=== PATIENT | female | born 1995 | race Caucasian/White ===

== ENCOUNTER 2020-02-19 09:59 | Emergency (ER) | payer OTHER ==
[2020-02-19] MEDS ORDERED: Ondansetron ODT 4 MG TAB ONE (10:29)
[2020-02-19 10:50] LABS: Bilirubin Negative (Negative); Blood, Urine Negative (Negative); Clarity Clear (Clear); Glucose, Urine (Dipstick) Normal (Negative); Ketone, Urine Negative (Negative); Leukocyte Negative Leu/uL (Negative); Nitrite Negative (Negative); Protein, Urine (Dipstick) Negative (Neg-Trace); Specific Gravity, Urine 1.019 (1.002-1.036); Urobilinogen Normal mg/dL (Less than 2)
[2020-02-19 10:57] LABS: Pregnancy Test - Urine (BHCG) Indeterminate (Negative); Pregu Control Background? CLEAR/WHITE (CLR/WHITE); Pregu Control Bar Appear? YES (CONTROL BAR); Specific Gravity 1.019 (1.002-1.036)
[2020-02-19 18:21] LABS: SARS-CoV-2 MS2 Positive; SARS-CoV-2 N Gene Negative; SARS-CoV-2 S Gene Negative; SARS-CoV-2 by NAA Not Detected (NotDetected); SARS-CoV-2 orf1ab Negative
== END 2020-02-19 12:00 | disposition home or self-care (01) ==
LOC: ERS 09:59
DX: R05 Cough (principal); R51.9 Headache, unspecified; R11.2 Nausea with vomiting, unspecified; R09.81 Nasal congestion; Z20.828 Contact with and (suspected) exposure to other viral communicable diseases
CPT/HCPCS: 81003; 81025; 87086; 87635; 99284; Q0162; U0003

== ENCOUNTER 2020-03-12 09:29 | Emergency (ER) | payer OTHER ==
[2020-03-12 16:32] LABS: SARS-CoV-2 MS2 Positive; SARS-CoV-2 N Gene Negative; SARS-CoV-2 S Gene Negative; SARS-CoV-2 by NAA Not Detected (NotDetected); SARS-CoV-2 orf1ab Negative
== END 2020-03-12 12:39 | disposition home or self-care (01) ==
LOC: ERS 09:29
DX: J06.9 Acute upper respiratory infection, unspecified (principal); Z20.828 Contact with and (suspected) exposure to other viral communicable diseases
CPT/HCPCS: 87635; 87804; 99283; U0003

== ENCOUNTER 2020-06-15 13:31 | Outpatient (CLI) | payer OTHER ==
--- NOTE | 2020-06-15 14:21 | ULT ---
EXAM: OB ultrasound COMPARISON: None HISTORY: female. Evaluate size, dates, and anatomy. TECHNIQUE: Multiplanar grayscale and color Doppler transabdominal sonographic images are obtained. FINDINGS: There is a single intrauterine gestation in cephalic presentation. Cardiac Doppler demonstr ates heart tones with a heart rate of 134 beats per minute. The placenta is located posteriorly and is low lying. There is a normal amount of amniotic fluid with an amniotic fluid index of 10.7 centimeters. The cervical length based on transabdominal imaging measures 3.9 centimeters. biometry measurements: BPD 4.45 cm -- 19 weeks 4 days HC 17.83 cm -- 20 weeks 3 days AC 13.48 cm -- 19 weeks FL 3.22 cm -- 20 weeks 1 day The estimated gestational age by ultrasound is 19 weeks 6 days with an ERIKA on11/03/2020. Gestational a ge by the last menstrual period is 20 weeks 4 days. The estimated weight by ultrasound is 298 g (11 ounces). This represents 7 percentile for weight. There is suggestion of a 4 chambered heart. The cerebellum, visualized portions of the spine, k idneys, urinary bladder, visualized extremities, nose and lips, and cord insertion demonstrate a normal sonographic appearance. A three-vessel cord is not visualized, but there is flow on either side of the urinary bladder sugges ting a three-vessel cord.. No anomalies are seen. Adnexal structures are not well visualized on this exam. IMPRESSION: 1. Low-lying placenta. Follow-up evaluation in 4-6 weeks is recommended. 2. Single intrauterine gestation in cephalic presentation with heart tones documented. Estimat ed gestational age by ultrasound is 19 weeks 6 days with ERIKA on 11/03/2020. 2. Estimated weight is 298 g (11 ounces). 3. Amniotic fluid index is 10.7 centimeters.
== END 2020-06-15 13:32 | disposition home or self-care (01) ==
LOC: BICULT 13:31
PROVIDERS: ATTEND Family Medicine
DX: Z34.82 Encounter for supervision of other normal pregnancy, second trimester (principal); Z3A.19 19 weeks gestation of pregnancy
CPT/HCPCS: 76805

== ENCOUNTER 2020-09-26 04:39 | Emergency (ER) | payer OTHER ==
[2020-09-26] MEDS ORDERED: Ondansetron PF 4 MG/2 ML Vial ONE (05:10)
== END 2020-09-26 05:25 | disposition short-term general hospital (02) ==
LOC: ERS 04:39
DX: O99.891 Other specified diseases and conditions complicating pregnancy (principal); R10.9 Unspecified abdominal pain; Z79.899 Other long term (current) drug therapy; Z3A.35 35 weeks gestation of pregnancy
CPT/HCPCS: 96374; J2405

== ENCOUNTER 2021-04-22 11:21 | Emergency (ER) | payer OTHER ==
[2021-04-22] MEDS ORDERED: Ketorolac Tromethamine 30 MG/ML VIAL ONE (13:14)
[2021-04-23 08:02] LABS: SARS-CoV-2 PCR by NAA Not Detected (NotDetected)
== END 2021-04-22 13:19 | disposition home or self-care (01) ==
LOC: ERS 11:21
DX: J01.90 Acute sinusitis, unspecified (principal); R11.2 Nausea with vomiting, unspecified; Z20.822 Contact with and (suspected) exposure to COVID-19
CPT/HCPCS: 96372; 99284; J1885; U0003; U0005

== ENCOUNTER 2022-02-13 03:10 | Emergency (ER) | payer OTHER ==
[2022-02-13] MEDS ORDERED: Morphine 4 MG/ML VIAL ONE ×2 (03:25→08:40)
[2022-02-13] MEDS ORDERED: Ondansetron PF 4 MG/2 ML Vial ONE (03:31)
[2022-02-13 05:19] LABS: #Lymphocytes 1.6 thou/uL (1.20-3.40); #Monocytes 0.4 thou/uL (0.11-0.59); #Neutrophils 5.8 thou/uL (1.40-6.50); %Basophils 0.2 % (0.0-1.0); %Eosinophils 0.6 % (0.0-10.0); %Lymphocytes 20.4 % (21.0-51.0); %Monocytes 4.5 % (0.0-10.0); %Neutrophils 74.3 % (42.0-75.0); Hemoglobin 10.1 g/dL (12.0-16.0); Mean Corpuscular HGB CONC 34.1 g/dL (32.0-36.0); Mean Corpuscular Hemoglobin 30.8 pg (27.0-31.0); Mean Corpuscular Volume 90.3 fL (78.0-98.0); Mean Platelet Volume 7.2 fL (7.4-10.4); Platelet Count 280 thou/uL (130-400); RBC Distribution Width 12.8 % (11.5-14.5); Red Blood Cell (RBC) Count 3.29 mill/uL (4.20-5.40); White Blood Cell (WBC) Count 7.8 thou/uL (4.8-10.8)
[2022-02-13 05:27] LABS: ALT (SGPT) 38 U/L (8-55); AST (SGOT) 58 U/L (5-34); Albumin 3.2 g/dL (3.5-5.0); Alkaline Phosphatase 111 U/L (40-110); Anion Gap 10 mmol/L (10-20); BUN (Urea Nitrogen) 6 mg/dL (7.0-18.7); Bilirubin, Total 0.8 mg/dL (0.2-1.2); Calc. Creatinine Clearance 0 mL/min (70-130); Carbon Dioxide 21 mmol/L (22-29); Chloride 109 mmol/L (98-107); Estimated GFR 132; Globulin 2.8 g/dL (2.4-3.5); Glucose 87 mg/dL (70-105); Sodium 136 mmol/L (136-145)
== END 2022-02-13 08:48 | disposition short-term general hospital (02) ==
LOC: ERS 03:10
DX: K80.50 Calculus of bile duct without cholangitis or cholecystitis without obstruction (principal)
CPT/HCPCS: 36415; 76705; 80053; 85025; 96374; 96375; 96376; J2270; J2405